=== PATIENT | male | born 1975 | race African-American/Black ===

== ENCOUNTER 2017-01-28 12:38 | Emergency (ER) | payer MEDICAID ==
[2017-01-28 12:45] VITALS: BP 152/86
--- NOTE | 2017-01-28 14:47 | ER Document Report ---
ED General - General Chief Complaint: Medication Refill Stated Complaint: MEDICATION REFILL/PSYCH Time Seen by Provider: 01/28/17 14:41 Mode of Arrival: Ambulatory Information source: Patient TRAVEL OUTSIDE OF THE [place] IN LAST 30 DAYS: No - HPI Patient complains to provider of: med refill Onset: Other - pt recently moved here from [place] and cannot get his calls returned from social service manager to get his meds refilled. pt. denies suicidal or homicidal ideation. - Related Data Allergies/Adverse Reactions: bacitracin [From Neosporin ([id number])] Allergy (Verified 01/28/17 12:45) neomycin [From Neosporin ([id number])] Allergy (Verified 01/28/17 12:45) polymyxin B [From Neosporin ([id number])] Allergy (Verified 01/28/17 12:45) Past Medical History - Social History Smoking Status: Never Smoker Cigarette use (# per day): No Chew tobacco use (# tins/day): No Smoking Education Provided: No Family History: None Review of Systems - Review of Systems Constitutional: No symptoms reported EENT: No symptoms reported Cardiovascular: No symptoms reported Respiratory: No symptoms reported Gastrointestinal: No symptoms reported Musculoskeletal: No symptoms reported Skin: No symptoms reported Neurological/Psychological: No symptoms reported -: Yes All other systems reviewed and negative Physical Exam - Vital signs Vitals: Temp Pulse Resp BP Pulse Ox 99.3 F 76 16 152/86 H 99 01/28/17 12:41 01/28/17 12:41 01/28/17 12:41 01/28/17 12:41 01/28/17 12:41 - General General appearance: Appears well In distress: None - Respiratory Respiratory status: No respiratory distress Breath sounds: Normal - Cardiovascular Rhythm: Regular Heart sounds: Normal auscultation - Abdominal Inspection: Normal Bowel sounds: Normal - Neurological Neuro grossly intact: Yes Cognition: Normal Orientation: AAOx4 - Psychological Associated symptoms: Normal affect Course - Vital Signs Vital signs: Temp Pulse Resp BP Pulse Ox 99.3 F 76 16 152/86 H 99 01/28/17 12:41 01/28/17 12:41 01/28/17 12:41 01/28/17 12:41 01/28/17 12:41 Discharge - Discharge Clinical Impression: Medication refill Condition: Stable Disposition: HOME, SELF-CARE Additional Instructions: rest, take meds as prescribed, return if worse Prescriptions: Clonazepam [Klonopin 1 mg Tablet] 1 mg PO TID #90 tablet Clonidine HCl [Catapres 0.2 mg Tablet] 0.2 mg PO Q12 #60 tab Venlafaxine HCl ER [Effexor Xr 37.5 mg Cap.sr] 37.5 mg PO DAILY #30 cap.sr.24h Referrals: RUY SHEA MD [ACTIVE STAFF] - Follow up as needed
== END 2017-01-28 15:40 | disposition home or self-care (01) ==
LOC: ER 12:38
DX: Z76.0 Encounter for issue of repeat prescription (principal)
CPT/HCPCS: 99281